=== PATIENT | male | born 1955 | race Caucasian/White ===

== ENCOUNTER 2025-03-17 22:21 | Emergency (ER) | payer MEDICARE, OTHER ==
[2025-03-17] MEDS ORDERED: Tranexamic Acid 1,000 MG/10 ML VIAL ONE (23:35)
[2025-03-18] MEDS ORDERED: Tranexamic Acid 1,000 MG/10 ML VIAL ONE (00:42)
[2025-03-18] MEDS ORDERED: Lidocaine 1% w/Epinephrine 1:100K 20 ML VIAL ONE (02:03)
== END 2025-03-18 02:55 | disposition home or self-care (01) ==
LOC: ERS 22:21
DX: S01.512A Laceration without foreign body of oral cavity, initial encounter (principal); I48.91 Unspecified atrial fibrillation; Z79.01 Long term (current) use of anticoagulants; E11.40 Type 2 diabetes mellitus with diabetic neuropathy, unspecified; Z87.891 Personal history of nicotine dependence; Z79.899 Other long term (current) drug therapy; Z79.84 Long term (current) use of oral hypoglycemic drugs; X58.XXXA Exposure to other specified factors, initial encounter
CPT/HCPCS: 64400